=== PATIENT | female | born 1985 | race Hispanic/Latino ===

== ENCOUNTER 2018-11-04 15:11 | Emergency (ER) | payer BC ==
[2018-11-04 16:04] LABS: VENOUS BLOOD GAS BASE EXCESS 1.5 mmol/L (0.0-2.0); VENOUS BLOOD GAS PCO2 43 mmHg (40-60); VENOUS BLOOD GAS PO2 48 mm/Hg (30-55)
[2018-11-04 16:13] LABS: BASO # 0.1 K/uL (0.0-0.2); BASO % 0.6 % (0.0-2.0); EOS # 0.8 K/uL (0.0-0.7); HEMOGLOBIN 13.9 g/dL (12.0-16.0); LYMPH # 2.1 K/uL (1.0-4.3); LYMPH % 20.7 % (20.0-40.0); MEAN CELL VOLUME 93.7 fl (81.0-99.0); MEAN CORPUSCULAR HEMOGLOBIN 31.3 pg (27.0-31.0); MEAN CORPUSCULAR HGB CONC 33.4 g/dL (33.0-37.0); MEAN PLATELET VOLUME 7.5 fl (7.2-11.7); MONO # 0.8 K/uL (0.0-0.8); MONO % 7.5 % (0.0-10.0); NEUT # 6.6 K/uL (1.8-7.0); NEUT % 63.2 % (50.0-75.0); NRBC % 0.1 % (0.0-0.0); RBC 4.45 Mil/uL (3.80-5.20); RED CELL DISTRIBUTION WIDTH 12.3 % (11.5-14.5); WHITE BLOOD COUNT 10.4 K/uL (4.8-10.8)
[2018-11-04] MEDS ORDERED: Iohexol 300 100 ML IJ ONE (16:19)
[2018-11-04] MEDS ORDERED: Sodium Chloride 0.9% 50 ML IV ONE (16:20)
[2018-11-04 16:22] LABS: BLOOD UREA NITROGEN 17 mg/dl (7-17); CALCIUM 8.7 mg/dL (8.4-10.2); GFR NON-AFRICAN AMERICAN > 60
[2018-11-04 16:30] LABS: SQUAMOUS EPITHIAL 4 /hpf (0-5); URINE BACTERIA RARE (<OCC); URINE BILIRUBIN NEGATIVE (NEGATIVE); URINE BLOOD MODERATE (NEGATIVE); URINE CLARITY CLOUDY (Clear); URINE COLOR YELLOW (YELLOW); URINE GLUCOSE (UA) NEG (NEGATIVE); URINE LEUKOCYTE ESTERASE MOD Leu/uL (Negative); URINE PROTEIN 100 mg/dL (NEGATIVE); URINE UROBILINOGEN 0.2-1.0 mg/dL (0.2-1.0)
--- NOTE | 2018-11-04 16:31 | ED PDOC ---
HPI: Abdomen Time Seen by Provider: 11/04/18 15:23 Chief Complaint (Nursing): Female Genitourinary Chief Complaint (Provider): abdominal pain History Per: Patient History/Exam Limitations: no limitations Onset/Duration Of Symptoms: Persistent (x1 week) Current Symptoms Are (Timing): Still Present Additional Complaint(s): 33 year old female with pmHx of asthma, presents to ED with complaints of abdominal pain and right flank pain after recent completion of Bactrim use for UTI. Patient went to [facility] earlier today then advised to go to ED for a CT scan to rule out kidney infection. No reports of fever, chills, nausea, or vomiting. PCP: none provided Past Medical History Reviewed: Historical Data, Nursing Documentation, Vital Signs Vital Signs: Last Vital Signs Temp 98 F 11/04/18 15:15 Pulse 78 11/04/18 15:15 Resp 18 11/04/18 15:15 BP 132/85 11/04/18 15:15 Pulse Ox 99 11/04/18 15:15 - Medical History PMH: Asthma - Family History Family History: States: Unknown Family Hx - Home Medications Home Medications: Ambulatory Orders Medication Instructions Recorded Levofloxacin [Levaquin] 750 mg PO DAILY 10 Days #10 tablet 11/04/18 - Allergies Allergies/Adverse Reactions: Allergies Allergy/AdvReac Type Severity Reaction Status Date / Time FISH Allergy SHORTNESS Verified 11/04/18 17:10 OF BREATH tree nuts Allergy SHORTNESS Uncoded 11/04/18 17:12 OF BREATH Review of Systems ROS Statement: Except As Marked, All Systems Reviewed And Found Negative Constitutional: Negative for: Fever, Chills Gastrointestinal: Positive for: Abdominal Pain. Negative for: Nausea, Vomiting Musculoskeletal: Positive for: Back Pain (right flank) Physical Exam - Reviewed Nursing Documentation Reviewed: Yes Vital Signs Reviewed: Yes - Physical Exam Appears: Positive for: No Acute Distress Head Exam: Positive for: ATRAUMATIC, NORMAL INSPECTION, NORMOCEPHALIC Skin: Positive for: Normal Color Eye Exam: Positive for: Normal appearance ENT: Positive for: Normal ENT Inspection Neck: Positive for: Normal, Supple Cardiovascular/Chest: Positive for: Regular Rate, Rhythm, Chest Non Tender Respiratory: Positive for: Normal Breath Sounds. Negative for: Respiratory Distress Gastrointestinal/Abdominal: Positive for: Normal Exam, Soft. Negative for: Tenderness Back: Positive for: R CVA Tenderness. Negative for: L CVA Tenderness Extremity: Positive for: Normal ROM (upper/lower) Neurologic/Psych: Positive for: Alert, Oriented. Negative for: Motor/Sensory Deficits - Laboratory Results Result Diagrams: 11/04/18 15:43 11/04/18 15:43 - ECG O2 Sat by Pulse Oximetry: 99 (RA) Pulse Ox Interpretation: Normal Medical Decision Making Medical Decision Making: Time: 1530 Initial Plan: well-appearing female with flank pain. Possible UTI vs. pyelonephritis vs. kidney stones vs. muscular spasm. * Labs * CT ABD/pelvis * Toradol 30mg IVP 630PM --Patient has signs of pyelonephritis on CT --Will give IV Dose of levoquin --Patient tolerating PO, normal viatls, well appearing, negative lactate, suitable for outpatient followup --Return precautions discussed Scribe Attestation: Documented by Adri Weiss, acting as a scribe for Gonsalo Arteaga MD. Provider Scribe Attestation: All medical record entries made by the Scribe were at my direction and personally dictated by me. I have reviewed the chart and agree that the record accurately reflects my personal performance of the history, physical exam, medical decision making, and the department course for this patient. I have also personally directed, reviewed, and agree with the discharge instructions and disposition. Disposition - Clinical Impression Clinical Impression: Pyelonephritis - Disposition Referrals: Christelle Khalil [Outside] Disposition Time: 18:41 Condition: IMPROVED Prescriptions: Levofloxacin [Levaquin] 750 mg PO DAILY 10 Days #10 tablet Instructions: Kidney Infection (DC) Forms: [employer] ([employer])
--- NOTE | 2018-11-04 18:38 | CT ---
Date of service: 11/04/2018 PROCEDURE: CT Abdomen and Pelvis . HISTORY: UTI, R flank pain COMPARISON: None. TECHNIQUE: Contiguous axial images of the abdomen and pelvis performed following intravenous injection of approximately 90 cc Omnipaque 300 contrast material. Additional 2D sagittal and coronal reformats generated. Radiation dose: Total exam DLP = 611.63 mGy-cm. This CT exam was performed using one or more of the following dose reduction techniques: Automated exposure control, adjustment of the mA and/or kV according to patient size, and/or use of iterative reconstruction technique. FINDINGS: LOWER THORAX: Heart size within range of normal. No significant pericardial effusion. There is a tiny hiatal hernia. The LIVER: Liver is enlarged measuring over 20 cm in CC dimension. There appears to be some very mild fatty hepatic infiltration. No obvious hepatic masses or collections seen on this noncontrast study. Portal and splenic veins opacified GALLBLADDER AND BILE DUCTS: Gallbladder is physiologically distended. No evidence of intraluminal gallbladder calculi. PANCREAS: Unremarkable. No mass. No ductal dilatation. SPLEEN: Unremarkable. No splenomegaly. ADRENALS: No adrenal lesions KIDNEYS AND URETERS: Kidneys demonstrate symmetric nephrograms. No evidence of nephrolithiasis or. There is slight dilatation of the right renal pelvis and collecting system possibly secondary to UTI given the patient's history of same. BLADDER: Urinary bladder is incompletely which may in part account for slight thick-walled appearance however cystitis is also suspected given the patient's history of UTI REPRODUCTIVE: Unremarkable. APPENDIX: The appendix unremarkable. BOWEL: Evaluation of the bowel is limited due to the lack of oral contrast material. Stomach is distended with food debris liquid and air. Visualized loops of small bowel exhibit normal contour and caliber. No evidence of acute mechanical small bowel obstruction. No definitive mural wall thickening. PERITONEUM: Unremarkable. No fluid collection. No free air. LYMPH NODES: Unremarkable. No enlarged lymph nodes. VASCULATURE: Unremarkable. No aortic aneurysm. No aortic atherosclerotic calcification or mural plaque present. BONES: No fracture or destructive lesion. OTHER FINDINGS: None. IMPRESSION: There is a bladder wall thickening likely in part due to incomplete distention no cystitis with ascending right-sided UTI suspected as evidence by prominent right renal pelvis and right ureter. No evidence of nephrolithiasis Mild hepatomegaly with fatty infiltration.
[2018-11-04] MEDS ORDERED: levoFLOXacin 750 mg in D5W 150 ML BAG IVPB STA (18:40)
[2018-11-04] MEDS ORDERED: levoFLOXacin 750 mg in D5W 750 MG/150 ML BAG IVPB ONE (19:05)
[2018-11-05 08:25] VITALS: BP 128/66; PULSE 74; RESP 20; TEMP 98.2; O2SAT 98
[2018-11-05] MEDS ORDERED: levoFLOXacin 750 mg in D5W 750 MG/150 ML BAG IVPB SCH (09:00)
== END 2018-11-04 20:50 | disposition home or self-care (01) ==
LOC: H.ER 15:11
DX: N12 Tubulo-interstitial nephritis, not specified as acute or chronic (principal)
CPT/HCPCS: 74177; 80048; 81003; 81025; 82803; 85025; 96374; 99284; J1885; Q9967